=== PATIENT | female | born 1970 | race Caucasian/White ===

== ENCOUNTER 2017-03-13 17:34 | Emergency (ER) | payer BC, OTHER ==
[2017-03-13 18:00] VITALS: BP 119/71
--- NOTE | 2017-03-13 18:45 | UC ---
Skin Complaint HPI - HPI Summary HPI Summary: mildly pruritic rash on face x 1 week or more worse past few days - History of Current Complaint Chief Complaint: UCSkin Stated Complaint: SKIN COMPLAINT Hx Obtained From: Patient Onset/Duration: Gradual Onset, Lasting Weeks Timing: Constant Onset Severity: Mild Current Severity: Moderate Pain Intensity: 0 Pain Scale Used: 0-10 Numeric Location: Face Character: Pruritus, Redness, Raised Aggravating Factor(s): Touch Alleviating Factor(s): Nothing Associated Signs & Symptoms: Positive: Rash - Allergy/Home Medications Allergies/Adverse Reactions: Allergies Allergy/AdvReac Type Severity Reaction Status Date / Time Bupropion [From Wellbutrin] Allergy Agitation Verified 03/13/17 18:00 Latex Allergy Hives Verified 03/13/17 18:00 Home Medications: Home Medications Lactobacillus [Probiotic Acidophilus] 1 cap PO DAILY 03/13/17 [History Confirmed 03/13/17] Omeprazole CAP* [Prilosec CAP* 20 MG] 40 mg PO DAILY 03/13/17 [History Confirmed 03/13/17] Review of Systems Constitutional: Negative Skin: Rash Eyes: Negative ENT: Negative Respiratory: Negative Cardiovascular: Negative Gastrointestinal: Negative Genitourinary: Negative Motor: Negative Neurovascular: Negative Musculoskeletal: Negative Neurological: Negative Psychological: Negative Is Patient Immunocompromised?: No All Other Systems Reviewed And Are Negative: Yes PMH/Surg Hx/FS Hx/Imm Hx Previously Healthy: Yes - Surgical History Surgical History: Yes Surgery Procedure, Year, and Place: heart hole repair, c secx2, tonsils, uterine ablation, partial hysterectomy (has 1 tube), discectomy c-5,c-6, colon & endoscopy w/ Linsey Stokes - Family History Known Family History: Positive: Hypertension Negative: Diabetes - Social History Alcohol Use: Occasionally Substance Use Type: None Smoking Status (MU): Former Smoker Type: Cigarettes - Immunization History Most Recent Influenza Vaccination: none Physical Exam Triage Information Reviewed: Yes Appearance: Well-Appearing, No Pain Distress, Well-Nourished Vital Signs: Initial Vital Signs Temp 98.4 F 03/13/17 17:53 Pulse 78 03/13/17 17:53 Resp 14 03/13/17 17:53 BP 119/71 03/13/17 17:53 Pulse Ox 100 03/13/17 17:53 Vital Signs Reviewed: Yes Eyes: Positive: Conjunctiva Clear ENT: Positive: Hearing grossly normal, Uvula midline. Negative: Nasal congestion, Nasal drainage, Trismus, Muffled voice, Hoarse voice Neck: Positive: Supple, Nontender, No Lymphadenopathy Respiratory: Positive: Lungs clear, Normal breath sounds Cardiovascular: Positive: RRR Bowel Sounds: Positive: Present Musculoskeletal: Positive: ROM Intact, No Edema Skin: Positive: rashes - inflammatory papules and pustules on face/some on neck as well Course/Dx - Diagnoses Provider Diagnoses: anceiform dermatitis Discharge - Discharge Plan Condition: Stable Disposition: HOME Prescriptions: DOXYcycline CAP(*) [DOXYcycline 100MG CAP(*)] 100 mg PO BID #14 cap Patient Education Materials: Acute Rash (ED) Referrals: Ravi Blake [Primary Care Provider] - 5 Days (if not improved ) Additional Instructions: don't apply any creams or ointments recheck next week if not better you had a steroid shot today
[2017-03-13] MEDS ORDERED: Triamcinolone Acetonide* 40 MG/ML 1 ML VIAL IM ONE (18:58)
== END 2017-03-13 19:13 | disposition home or self-care (01) ==
LOC: UCCORT 17:34
DX: L27.0 Generalized skin eruption due to drugs and medicaments taken internally (principal)
CPT/HCPCS: 96372; 99212; G0463; J3301

== ENCOUNTER 2017-03-30 10:36 | Emergency (ER) | payer BC ==
[2017-03-30 11:51] VITALS: BP 116/68
--- NOTE | 2017-03-30 13:32 | RAD ---
INDICATION: Injury bilateral knee pain. TECHNIQUE: 4 views of both knees were obtained. FINDINGS: The bones are normal alignment. No joint effusion or fracture is seen. Joint spaces appear maintained. IMPRESSION: NO EVIDENCE FOR FRACTURE.
--- NOTE | 2017-03-30 13:38 | UC ---
FLU HPI - HPI Summary HPI Summary: tripped over a baby gait and landed on both knee r knee hurts worse than left ( and has more swelling) ambulatory but does walk with guarded steps - History of Current Complaint Hx Obtained From: Patient Hx Last Menstrual Period: n/a ?: No Onset/Duration: Sudden Onset, Lasting Days - 1 Severity Currently: Moderate Severity Initially: Moderate Pain Intensity: 6 Pain Scale Used: 0-10 Numeric <Judy Fuentes - Last Filed: 03/30/17 20:34> <Lashonda Novak - Last Filed: 04/01/17 09:51> - History of Current Complaint Chief Complaint: UCLowerExtremity Stated Complaint: BILATERAL KNEE PAIN Time Seen by Provider: 03/30/17 12:40 - Allergy/Home Medications Allergies/Adverse Reactions: Allergies Allergy/AdvReac Type Severity Reaction Status Date / Time Bupropion [From Wellbutrin] Allergy Agitation Verified 03/30/17 11:51 Latex Allergy Hives Verified 03/30/17 11:51 PMH/Surg Hx/FS Hx/Imm Hx Previously Healthy: No Endocrine History: Hypothyroidism Respiratory History: Asthma GI/ History: Gastroesophageal Reflux Psychological History: Depression - Surgical History Surgical History: Yes Surgery Procedure, Year, and Place: heart hole repair, c secx2, tonsils, uterine ablation, partial hysterectomy (has 1 tube), discectomy c-5,c-6, colon & endoscopy w/ Linsey Stokes - Family History Known Family History: Positive: Hypertension Negative: Diabetes - Social History Occupation: Employed Part-time Lives: With Family Alcohol Use: Occasionally Substance Use Type: None Smoking Status (MU): Former Smoker Type: Cigarettes - Immunization History Most Recent Influenza Vaccination: none <Judy Fuentes - Last Filed: 03/30/17 20:34> Review of Systems Constitutional: Negative Skin: Negative Eyes: Negative ENT: Negative Respiratory: Negative Cardiovascular: Negative Gastrointestinal: Negative Genitourinary: Negative Motor: Negative Neurovascular: Negative Musculoskeletal: Arthralgia - bilateral knee pain and swelling Neurological: Negative Psychological: Negative Is Patient Immunocompromised?: No All Other Systems Reviewed And Are Negative: Yes <Judy Fuentes - Last Filed: 03/30/17 20:34> Physical Exam Triage Information Reviewed: Yes Appearance: Well-Appearing, Well-Nourished, Pain Distress - mild Vital Signs: Initial Vital Signs Temp 98.7 F 03/30/17 11:47 Pulse 66 03/30/17 11:47 Resp 16 03/30/17 11:47 BP 116/68 03/30/17 11:47 Pulse Ox 100 03/30/17 11:47 Vital Signs Reviewed: Yes Eye Exam: Normal Eyes: Positive: Conjunctiva Clear ENT Exam: Normal ENT: Positive: Normal ENT inspection, Hearing grossly normal. Negative: Nasal congestion, Trismus, Muffled voice, Hoarse voice Dental Exam: Normal Neck exam: Normal Neck: Positive: Supple, Nontender, No Lymphadenopathy Respiratory Exam: Normal Respiratory: Positive: No respiratory distress, No accessory muscle use Cardiovascular Exam: Normal Cardiovascular: Positive: RRR, Pulses Normal, Brisk Capillary Refill Musculoskeletal Exam: Normal Musculoskeletal: Positive: Strength Intact, ROM Intact, Edema @ - right knee Neurological Exam: Normal Psychological Exam: Normal Skin Exam: Normal <Judy Fuentes - Last Filed: 03/30/17 20:34> Vital Signs: Initial Vital Signs Temp 98.7 F 03/30/17 11:47 Pulse 66 03/30/17 11:47 Resp 16 03/30/17 11:47 BP 116/68 03/30/17 11:47 Pulse Ox 100 03/30/17 11:47 <Lashonda Novak - Last Filed: 04/01/17 09:51> Diagnostics - Radiology No standard instances Xray Interpretation: No Acute Changes Radiology Interpretation Completed By: ED Physician, Radiologist <Judy Fuentes - Last Filed: 03/30/17 20:34> Re-Evaluation - Re-Evaluation First Eval Change: Improved <Judy Fuentes - Last Filed: 03/30/17 20:34> Flu Course/Dx - Course Course Of Treatment: nirmala wrap rice, pain med, off work today and sunday if needed follow with ortho as needed - Differential Dx/Diagnosis Provider Diagnoses: bilateral knee contusion <Judy Fuentes - Last Filed: 03/30/17 20:34> Discharge <Judy Fuentes - Last Filed: 03/30/17 20:34> <Lashonda Novak - Last Filed: 04/01/17 09:51> - Discharge Plan Condition: Stable Disposition: HOME Prescriptions: oxyCODONE/Acetamin 5/325 MG* [Percocet 5/325 TAB*] 1 tab PO Q6H PRN #10 tab MDD 4 PRN Reason: pain Patient Education Materials: Contusion in Adults (ED), Knee Pain (ED) Forms: *Gen. Provider Communication, *Work Release Referrals: Pieter Thakur MD [Medical Doctor] - 5 Days Attestation Statement User Type: Provider - I was available for consult. This patient was seen by the [facility]. The patient was not presented to, seen by, or examined by me. -Kathryn <Lashonda Novak - Last Filed: 04/01/17 09:51>
== END 2017-03-30 13:56 | disposition home or self-care (01) ==
LOC: UCCORT 10:36
DX: S80.02XA Contusion of left knee, initial encounter (principal); S80.01XA Contusion of right knee, initial encounter; W18.09XA Striking against other object with subsequent fall, initial encounter; Y93.9 Activity, unspecified; Y92.9 Unspecified place or not applicable; Y99.9 Unspecified external cause status; Z72.89 Other problems related to lifestyle; Z87.891 Personal history of nicotine dependence
CPT/HCPCS: 99212; G0463

== ENCOUNTER 2017-04-09 12:04 | Emergency (ER) | payer BC ==
[2017-04-09 12:31] VITALS: BP 109/63
--- NOTE | 2017-04-09 12:39 | UC ---
Allergic Reaction HPI - HPI Summary HPI Summary: 46 year old female presents with complains of rash after using hair color. - History of Current Complaint Chief Complaint: UCRash Stated Complaint: ALLERGIC REACTION Time Seen by Provider: 04/09/17 12:31 Hx Obtained From: Patient Hx Last Menstrual Period: n/a Onset/Duration: Sudden Onset Severity Initially: Moderate Severity Currently: Moderate Pain Scale Used: 0-10 Numeric - 5 Character: Pruritus - Allergies/Home Medications Allergies/Adverse Reactions: Allergies Allergy/AdvReac Type Severity Reaction Status Date / Time Bupropion [From Wellbutrin] Allergy Agitation Verified 04/09/17 12:23 Latex Allergy Hives Verified 04/09/17 12:23 lorel exra ordinary oil Allergy Rash Uncoded 04/09/17 12:24 PMH/Surg Hx/FS Hx/Imm Hx Previously Healthy: Yes - Surgical History Surgical History: Yes Surgery Procedure, Year, and Place: heart hole repair, c secx2, tonsils, uterine ablation, partial hysterectomy (has 1 tube), discectomy c-5,c-6, colon & endoscopy w/ Linsey Stokes. thyroid surgery for cysts - Family History Known Family History: Positive: Hypertension Negative: Diabetes - Social History Alcohol Use: Occasionally Substance Use Type: None Smoking Status (MU): Former Smoker Type: Cigarettes When Did the Patient Quit Smoking/Using Tobacco: 10 years ago - Immunization History Most Recent Influenza Vaccination: none Review of Systems Constitutional: Negative Skin: Rash Eyes: Negative ENT: Negative Respiratory: Negative Cardiovascular: Negative Gastrointestinal: Negative Genitourinary: Negative Motor: Negative Neurovascular: Negative Musculoskeletal: Negative Neurological: Negative Psychological: Negative All Other Systems Reviewed And Are Negative: Yes Physical Exam Triage Information Reviewed: Yes Vital Signs: Initial Vital Signs Temp 36.6 C 04/09/17 12:25 Pulse 70 04/09/17 12:25 Resp 18 04/09/17 12:25 BP 109/63 04/09/17 12:25 Pulse Ox 100 04/09/17 12:25 Vital Signs Reviewed: Yes Eye Exam: Normal ENT Exam: Normal Dental Exam: Normal Neck exam: Normal Neck: Positive: 1 Respiratory Exam: Normal Cardiovascular Exam: Normal Abdominal Exam: Normal Musculoskeletal Exam: Normal Neurological Exam: Normal Psychological Exam: Normal Skin: Positive: rashes Allergic Reaction Course/Dx - Differential Dx/Diagnosis Provider Diagnoses: contact dermatitis Discharge - Discharge Plan Condition: Stable Disposition: HOME Prescriptions: Cephalexin CAP* [Keflex CAP*] 500 mg PO TID #30 cap LoraTADine TAB(NF) [Claritin 10 MG TAB(NF)] 10 mg PO DAILY #30 tab predniSONE TAB* [Deltasone TAB*] 40 mg PO DAILY #10 tab Triamcinolone 0.1% CREAM (NF) [Kenalog 0.1% Cream (NF)] 1 applic TOPICAL TID PRN #85 gm PRN Reason: Itching Patient Education Materials: Acute Rash (ED) Referrals: Maddison Farrell MD [Primary Care Provider] - Kiana Lynne [Medical Doctor] -
[2017-04-09] MEDS ORDERED: methylPREDNISolone 125 MG* 2 ML VIAL IM ONE (12:41)
== END 2017-04-09 13:14 | disposition home or self-care (01) ==
LOC: UCCORT 12:04
DX: L25.9 Unspecified contact dermatitis, unspecified cause (principal); Z90.711 Acquired absence of uterus with remaining cervical stump; Z87.891 Personal history of nicotine dependence
CPT/HCPCS: 96372; 99212; G0463; J2930

== ENCOUNTER 2019-04-19 15:55 | Emergency (ER) | payer BC ==
--- NOTE | 2019-04-19 16:15 | UC ---
Throat Pain/Nasal Sanjeev HPI - HPI Summary HPI Summary: 48 y/o female presents to the urgent care c/o sore throat and fever since yesterday. Pt reports symptoms started w/ nasal congestion and body aches and BLOOM 2 days ago and went to [place] [facility] and Dx w/ influenza B and given fluid and Rx Tamiflu PO and Zofran PO. Yesterday she woke up w/ severe sore throat. She has been taking Ibuprofen and Tylenol PO to alleviate symptoms. Last dose taken was Ibuprofen 600mg PO around 1400 today. Pain w/ swallowing is 9/10. Pt denies dizziness, cough, SOB, chest pain,abdominal pain, N/v/D - History of Current Complaint Stated Complaint: FLU B(04/17)-ST NOW Time Seen by Provider: 04/19/19 16:14 Hx Obtained From: Patient Hx Last Menstrual Period: n/a Onset/Duration: Gradual Onset, Lasting Days - 2 days w/ influenza B, Still Present, Worse Since - yesterday w/ sore throat and fever Pain Intensity: 9 - sore throat Pain Scale Used: 0-10 Numeric Cough: None Associated Signs & Symptoms: Positive: Sinus Discomfort, Nasal Discharge - clear , Fever. Negative: Dysphagia, Wheezing, Hoarseness Related History: Other (Noted In Comments) - recetnly Dx w/ influenza B 2 days ago - Epiglottits Risk Factors Epiglottis Risk Factors: Negative - Allergies/Home Medications Allergies/Adverse Reactions: Allergies Allergy/AdvReac Type Severity Reaction Status Date / Time latex Allergy Hives Verified 04/19/19 16:15 bupropion AdvReac Agitation Verified 04/19/19 16:15 lorel exra ordinary oil Allergy Rash Uncoded 04/19/19 16:15 Home Medications: Home Medications Ondansetron TAB* [Zofran 4 MG Tab*] 1 tab TID PRN 04/19/19 [History Confirmed ] Oseltamivir CAP* [Tamiflu CAP*] 1 cap BID 04/19/19 [History Confirmed 04/19/19] PMH/Surg Hx/FS Hx/Imm Hx Previously Healthy: Yes Endocrine History: Hypothyroidism GI/ History: Gastroesophageal Reflux Psychological History: Anxiety, Depression - Surgical History Surgical History: Yes Surgery Procedure, Year, and Place: heart hole repair, c secx2, tonsils, uterine ablation, partial hysterectomy (has 1 tube), discectomy c-5,c-6, colon & endoscopy w/ Linsey Kike. thyroid surgery for cysts - Family History Known Family History: Positive: Hypertension Negative: Diabetes - Social History Occupation: Employed Full-time Lives: With Family Alcohol Use: Occasionally Substance Use Type: Marijuana Smoking Status (MU): Former Smoker Type: Cigarettes When Did the Patient Quit Smoking/Using Tobacco: 10 years ago - Immunization History Most Recent Influenza Vaccination: none Review of Systems All Other Systems Reviewed And Are Negative: Yes Constitutional: Positive: Fever, Chills, Other - body aches Skin: Positive: Negative Eyes: Positive: Negative ENT: Positive: Sore Throat, Nasal Discharge - clear, Sinus Congestion, Sinus Pain/Tenderness Respiratory: Positive: Negative Cardiovascular: Positive: Negative Gastrointestinal: Positive: Negative Genitourinary: Positive: Negative Motor: Positive: Negative Neurovascular: Positive: Negative Musculoskeletal: Positive: Myalgia Neurological: Positive: Negative Psychological: Positive: Negative Is Patient Immunocompromised?: No Physical Exam - Summary Physical Exam Summary: VITAL SIGNS: Reviewed. GENERAL: Patient is a well developed and nourished female who is sitting comfortably in the examining table. Patient is not in any acute respiratory distress. HEAD AND FACE: No signs of trauma. No ecchymosis, hematomas or skull depressions. No sinus tenderness. EYES: PERRLA, EOMI x 2, No injected conjunctiva, no nystagmus. No photophobia. EARS: Hearing grossly intact. Ear canals and tympanic membranes are within normal limits. MOUTH: Positive pharynx with erythema, exudates, palatal petechiae. B/L tonsillar enlargement with exudate. Uvula in midline. NECK: Supple, trachea is midline, Positive anterior cervical lymphadenopathy, no JVD, no carotid bruit, no c-spine tenderness, neck with full ROM. No meningeal signs, no Kernig's or brudzinskis signs. CHEST: Symmetric, no tenderness at palpation LUNGS: Clear to auscultation bilaterally. No wheezing or crackles. CVS: Regular rate and rhythm, S1 and S2 present, no murmurs or gallops appreciated. ABDOMEN: Soft, non-tender. No signs of distention. No rebound no guarding, and no masses palpated. Bowel sounds are normal. EXTREMITIES: FROM in all major joints, no edema, no cyanosis or clubbing. NEURO: Alert and oriented x 3. No acute neurological deficits. Speech is normal and follows commands. SKIN: Dry and warm Triage Information Reviewed: Yes Throat Pain/Nasal Course/Dx - Course Course Of Treatment: 48 y/o female presents to the urgent care c/o sore throat and fever since yesterday. Pt reports symptoms started w/ nasal congestion and body aches and BLOOM 2 days ago and went to [place] [facility] and Dx w/ influenza B and given fluid and Rx Tamiflu PO and Zofran PO. Yesterday she woke up w/ severe sore throat. She has been taking Ibuprofen and Tylenol PO to alleviate symptoms. Last dose taken was Ibuprofen 600mg PO around 1400 today. Pain w/ swallowing is 9/10. Pt denies dizziness, cough, SOB, chest pain,abdominal pain, N/v/D. Hx obtained. Rapid Strep: positive. Strep pharyngitis. Pt already took Ibuprofen PO abou 2 hrs ago. Pt given Viscous lidocaine by nurse to alleviate sore throat. Pt given at the clinic Viscous lidocaine to alleviate sore throat by the nurse. Pt tolerated well medication and felt better. Pt Rx Amoxicillin PO and Viscous Lidocaine as directed below. Pt Advised to continue Ibuprofen/Tylenol PO prn after meals for pain and swelling. Also to continue w/ Tamiflu PO for her Influenza B. PT Advised on hand washing to avoid spreading. Also advised to rest , eat well and avoid strenuous exercise. If symptoms do not improve or worsen advised to return to the urgent care or f/u with her PCP in 2-3 days for further evaluation and treatment. D/C instructions explained. PT understood and agreed w/ plan of care. - Differential Dx/Diagnosis Differential Diagnosis/HQI/PQRI: Influenza, Laryngitis, Pharyngitis, Sinusitis, Tonsillitis, URI Provider Diagnosis: Strep pharyngitis Discharge ED - Sign-Out/Discharge Documenting (check all that apply): Patient Departure - d/c home All imaging exams completed and their final reports reviewed: No Studies - Discharge Plan Condition: Stable Disposition: HOME Prescriptions: Amoxicillin PO (*) [Amoxicillin 500 MG CAP*] 500 mg PO Q12H #20 cap Fluconazole 150 MG TAB* [Diflucan 150 MG TAB*] 150 mg PO ONCE #1 tablet Lidocaine 2% VISCOUS* [Xylocaine 2% Viscous*] 15 ml SWISH SPIT Q6H PRN #1 btl PRN Reason: Sore Throat Patient Education Materials: Strep Throat (ED) Referrals: Maddison Farrell MD [Primary Care Provider] - Additional Instructions: 1- Please take the full course of the antibiotic to avoid resistance.Take yogurts w/ probiotics or Culturelle to protect your GI system 2-Please take ibuprofen/ Tylenol PO q6-8hrs prn as instructed after meals to alleviate fever, pain and swelling. Increase fluid intake, eat well, rest and avoid strenuous exercise 3- Continue taking Tamiflu PO to alleviate Influenza B. encourage hand washing to avoid spreading. 4-If symptoms do not improve or worsen please return to the urgent care or f/u with your PCP in 2-3 days for further evaluation and treatment. - Billing Disposition and Condition Condition: STABLE Disposition: Home
--- OUTSIDE RECORDS SUMMARY | 2019-04-19 16:15 | XMS REPORT | Summary of Care ---
:1970 Author Organization [facility] Address [address] [place] [address] Care Team Providers Name Role Phone Maddison Farrell MD Primary Care Provider Encounter Details Date Type Department Care Team Description 03/27/2019 Hospital Encounter Radiology Women's Bilateral breast lump; Imaging [id number] Left breast mass [address] [place] [address] Allergies Not on Filedocumented as of this encounter (statuses as of 03/28/2019) Medications Not on filedocumented as of this encounter (statuses as of 03/28/2019) Active Problems Not on filedocumented as of this encounter (statuses as of 03/28/2019) Social History Tobacco Use Types Packs/Day Years Used Date Never Assessed Sex Assigned at Date Recorded Not on file Job Start Date Occupation Industry Not on file Not on file Not on file Travel History Travel Start Travel End No recent travel history available. documented as of this encounter Last Filed Vital Signs Not on filedocumented in this encounter Plan of Treatment Date Type Specialty Care Team Description 04/22/2019 Appointment Radiology documented as of this encounter Procedures Procedure Name Priority Date/Time Associated Diagnosis Comments DO NOT USE PRIOR TO Routine 03/27/2019 1:51 PM Left breast mass Results for this 08/01/2015 US BREAST EST procedure are in INCLUDING AXILLA the results LIMITED LEFT [id number] section. documented in this encounter Results US Breast Including Axilla Limited Left (03/27/2019 1:51 PM EST) Specimen Impressions Performed At IMPRESSION: [facility] 1. Mass in the left breast which could represent developing rim calcified mass on mammogram. This may be biopsied under ultrasound guidance for further evaluation. 2. The patient was rescheduled for biopsy as she had her young child with her on the day of ultrasound. BI-RADS 4 - SUSPICIOUS ABNORMALITY, BIOPSY SHOULD BE CONSIDERED. Narrative Performed At TARGETED LEFT BREAST ULTRASOUND [facility] HISTORY: The patient presented for left breast biopsy of possible rim calcified mass that was unable to be biopsied stereotactically at an outside facility. The patient went for ultrasound-guided biopsy at an outside facility but the lesion was not seen on the day of biopsy. COMPARISON: Outside breast ultrasound 01/28/2019, 02/03/2019; outside mammogram 01/28/2019 FINDINGS: Targeted ultrasound of the left breast demonstrates a 0.6 x 0.7 x 0.7 cm cyst with thick wall and likely wall calcifications at 12:00, 4 cm from the nipple. Other cysts are also seen in this region. Procedure Note Interface, Received Via [facility] - 03/27/2019 3:56 PM EST TARGETED LEFT BREAST ULTRASOUND HISTORY: The patient presented for left breast biopsy of possible rim calcified mass that was unable to be biopsied stereotactically at an outside facility. The patient went for ultrasound-guided biopsy at an outside facility but the lesion was not seen on the day of biopsy. COMPARISON: Outside breast ultrasound 01/28/2019, 02/03/2019; outside mammogram 01/28/2019 FINDINGS: Targeted ultrasound of the left breast demonstrates a 0.6 x 0.7 x 0.7 cm cyst with thick wall and likely wall calcifications at 12:00, 4 cm from the nipple. Other cysts are also seen in this region. IMPRESSION: 1. Mass in the left breast which could represent developing rim calcified mass on mammogram. This may be biopsied under ultrasound guidance for further evaluation. 2. The patient was rescheduled for biopsy as she had her young child with her on the day of ultrasound. BI-RADS 4 - SUSPICIOUS ABNORMALITY, BIOPSY SHOULD BE CONSIDERED. Performing Organization Address City/State/Zipcode Phone Number [facility] [address] [place] [address] documented in this encounter Visit Diagnoses Diagnosis Bilateral breast lump Left breast mass Lump or mass in breast documented in this encounter
[2019-04-19 16:22] VITALS: BP 119/61
[2019-04-19] MEDS ORDERED: Lidocaine 2% VISCOUS* 15 ML UDC SWISH SPIT ONE (16:31)
== END 2019-04-19 16:45 | disposition home or self-care (01) ==
LOC: UCCORT 15:55
DX: J02.0 Streptococcal pharyngitis (principal); Z87.891 Personal history of nicotine dependence; Z91.040 Latex allergy status; Z91.09 Other allergy status, other than to drugs and biological substances; Z88.8 Allergy status to other drugs, medicaments and biological substances
CPT/HCPCS: 87651; 99212; G0463

== ENCOUNTER 2023-06-21 09:00 | Inpatient (IN) ==
[2023-09-12] MEDS ORDERED: Naloxone 0.4 mg VIAL 0.4 mg/ml 1 ml VIAL IV PRN (17:00)
[2023-09-12] MEDS ORDERED: Metoclopramide 5 MG/ML VIAL (10 mg) IV PRN (17:00)
[2023-09-12] MEDS ORDERED: Acetaminophen IV 1 GM/100ML 1,000 MG/100 ML BAG IV ONE (17:00)
[2023-09-12] MEDS ORDERED: NS 0.45% 1000 ml BAG 1,000 ML IV SCH (17:00)
[2023-09-13] MEDS ORDERED: Propofol 10 MG/ML 20 ML BTL ONE (08:28)
[2023-09-13] MEDS ORDERED: Lidocaine 2% PF 5 ML VIAL ONE (08:28)
[2023-09-13] MEDS ORDERED: Midazolam 2 mg/2 ml VIAL 1 mg/ml 2 ml VIAL (2 mg) ONE ×2 (08:30→15:28)
[2023-09-13 09:00] LABS: Rapid COVID-19 Molecular Undetected (Undetected)
[2023-09-13] MEDS ORDERED: Tranexamic Acid 1 GM/100ML BAG 2,000 MG/200 ML BAG IV ONE (09:09)
[2023-09-13] MEDS ORDERED: Scopolamine 1 mg/72hr PATCH ONE (09:09)
[2023-09-13] MEDS ORDERED: ceFAZolin 2 GM in NS PREMIX 2 GM/100 ML BAG IVPB ONE (09:09)
[2023-09-13] MEDS: Buffered Lidocaine 1% SYRIN 1 ml INTRADERM ONE (09:27)
[2023-09-13] MEDS: Scopolamine 1 mg/72hr PATCH TRANSDERM ONE (09:28)
[2023-09-13] MEDS: Lactated Ringers 1000 ml BAG 1,000 ML IV SCH ×2 (09:28→17:36)
[2023-09-13] MEDS ORDERED: ROPIVACAINE 5 MG/ML 30 ML BTL (0.5%) ONE (09:45)
[2023-09-13] MEDS ORDERED: Rocuronium 50 mg VIAL 10 mg/ml 5 ml VIAL (50 mg) ONE (10:50)
[2023-09-13] MEDS ORDERED: fentaNYL 100 mcg/2 ml 50 MCG/ML VIAL ONE ×2 (10:50→13:51)
[2023-09-13] MEDS ORDERED: fentaNYL 250 mcg/5 ml 50 MCG/ML 5 ml VIAL (250 MCG) ONE (10:50)
[2023-09-13] MEDS ORDERED: KETAMINE HCL 10 MG/ML 20 ml VIAL (200 MG) ONE (10:51)
[2023-09-13] MEDS ORDERED: HYDROmorphone 0.5 MG/0.5 ML SYRINGE ONE (11:40)
[2023-09-13] MEDS ORDERED: Ondansetron 4 mg VIAL 2 MG/ML 2 ml VIAL ONE ×2 (11:54→14:43)
[2023-09-13] MEDS ORDERED: Dexamethasone IV 4 MG/ML VIAL 1 ml VIAL ONE (11:54)
[2023-09-13] MEDS ORDERED: Morphine 2 MG/ML SYRINGE IV PRN (13:36)
[2023-09-13] MEDS ORDERED: Ondansetron 4 mg VIAL 2 MG/ML 2 ml VIAL IV PRN (13:36)
[2023-09-13] MEDS ORDERED: Calcium Carb (TUMS) 500 mg CHEW TAB PO PRN (13:36)
[2023-09-13] MEDS ORDERED: Lactulose 30 ml UDC PO PRN (13:36)
[2023-09-13] MEDS ORDERED: Ondansetron ODT 4 mg TAB 4 MG TAB PO PRN (13:36)
[2023-09-13] MEDS ORDERED: Magnesium Hydroxide LIQ 30 ML UDC PO PRN (13:36)
[2023-09-13] MEDS: fentaNYL 100 mcg/2 ml 50 MCG/ML VIAL IV PRN (13:51)
[2023-09-13] MEDS: Ondansetron 4 mg VIAL 2 MG/ML 2 ml VIAL IV PRN (14:44)
[2023-09-13] MEDS: Midazolam 2 mg/2 ml VIAL 1 mg/ml 2 ml VIAL (2 mg) IV SLOW PU ONE (15:43)
[2023-09-13] MEDS ORDERED: Albuterol HFA INHALER 8 gm MDI INH PRN (18:52)
[2023-09-13] MEDS: Magnesium Hydroxide LIQ 30 ML UDC PO SCH (21:37)
[2023-09-13] MEDS: ceFAZolin 2 GM in NS PREMIX 2 GM/100 ML BAG IVPB SCH (21:40)
[2023-09-14 05:51] LABS: Hemoglobin 9.5 g/dL (11.5-14.3); Mean Platelet Volume 7.6 fL (7.5-11.2); Platelet Count 261 10^3/uL (150-450)
[2023-09-14 06:27] LABS: Calcium 8.2 mg/dL (8.6-10.3); Creatinine, Serum 0.68 mg/dL (0.51-0.95); Potassium 4.1 mmol/L (3.5-5.0); eGFR CKD-EPI 105.4 (>60)
[2023-09-14] MEDS: Vitamin THERAPEUTIC TAB PO SCH (08:32)
[2023-09-14 10:34] VITALS: BP 122/59
== END 2023-09-14 12:39 | disposition home or self-care (01) | DRG 301 ==
LOC: INTOOBSV 09-13 08:06 → AA 09-13 08:06 → SSU 09-13 16:46
PROVIDERS: ADMIT Orthopaedic Surgery Adult Reconstructive Orthopaedic Surgery; ATTEND Orthopaedic Surgery Adult Reconstructive Orthopaedic Surgery